=== PATIENT | female | born 2000 | race Caucasian/White ===

== ENCOUNTER 2019-01-25 02:48 | Emergency (ER) | payer SELFPAY ==
[~2019-01-25] VITALS: Ht 172.7 cm; Wt 90.9 kg
[2019-01-25 02:51] VITALS: BP 141/81; TEMP 97.1
[2019-01-25] MEDS ORDERED: LO LOESTRIN FE1 TAB PO (02:54)
[2019-01-25 04:21] VITALS: PULSE 68
== END 2019-01-25 04:43 | disposition home or self-care (01) ==
LOC: COL.ER 02:48
DX: R00.2 Palpitations (principal); F41.9 Anxiety disorder, unspecified
CPT/HCPCS: J2060